=== PATIENT | male | born 1965 | race Caucasian/White ===

== ENCOUNTER 2016-12-30 01:48 | Emergency (ER) | payer OTHER ==
--- NOTE | 2016-12-30 02:16 | ERNOTE ---
ENT HPI Presenting Symptoms: eye pain Time Seen by Provider: 12/30/16 01:58 Source: patient Exam Limitations: no limitations - Immun/Allergies/Home Medications Immunizations: IMMUNIZATION HX Immunizations Up to Date Yes History of Influenza Vaccine No Hx Pneumococcal Vaccination No Allergies/Adverse Reactions: Allergies Allergy/AdvReac Type Severity Reaction Status Date / Time No Known Drug Allergies Allergy Verified 12/30/16 01:54 Home Medications: HOME MEDICATIONS NK [No Home Medication] 12/30/16 [Last Taken Unknown] - History of Present Illness Narrative: Pt was at work when oil was sprayed onto him getting into his eyes. His eyes were flushed immediately and then he was brought to the ED. His vision is 20/ 30 with both eyes. He report the left eye is still somewhat irritated but both are much better than initially. Severity: Present: moderate ENT Location: Present: eye (R), eye (L) Prearrival Treatment: Present: flushing eys Review of Systems - Review of Systems Constitutional: Absent: recent illness EYE: Present: see HPI, tearing ENT: Present: no symptoms reported Respiratory: Absent: shortness of breath Cardiology: Absent: chest pain Skin: Present: no symptoms reported Neurological: Present: no symptoms reported - Patient's Past Medical History Patient History - Medical: No pertinent hx Patient History - Cardiac/Respiratory: No pertinent hx Patient History - Cancer: No Hx of Cancer Patient History - Surgical Procedures: No surgical history Patient History - Other: None - Social History Living Situations: home Psych History: No pertinent hx Smoking Status: Never smoker Alcohol Use: rarely Drug Use: none - Immunizations Immunizations Up to Date: Yes Hx Pneumococcal Vaccination: No History of Influenza Vaccine: No Physical Exam - Physical Exam General Appearance: Present: wd/wn, alert, no apparent distress Head Exam: Present: normal inspection, no evidence of injury Eye Exam: PERRL: bilateral, EOMI: bilateral, Sclera injection: bilateral - mild right, moderate left Ears, Nose, Throat: Present: normal pharynx Neck: Present: normal inspection, nontender, supple Respiratory: Present: no respiratory distress, no accessory muscle use Neurological Exam: Present: alert, oriented, normal mood/affect, no motor/ sensory deficits Skin Exam: Present: normal color, warm/dry, other - Pt still has much oil on his clothes and skin ED Progress - Vital Signs Vital Signs: Vital Signs 12/30/16 01:50 Temperature 36.8 C Pulse Rate 101 H Respiratory 18 Rate Blood Pressure 139/91 O2 Sat by Pulse 97 Oximetry - Progress/Reassessment Chief Complaint: Eye Injury/Trauma Procedures Narrative: right eye pH 7.0 initially, left eye 7.5-8.0 initially. Left eye 7.0-7.3 after [place] lens Eye Location: both eyes Tetracaine Drops Administered: Yes Eye - Cornea: Bilateral: examined w/fluorescein - No uptake Eye Irrigated w/ Saline (mls): 500 - left eye Antibiotic Ointment/Drps Admin: both eyes Complications: Pt shawanda procedure well Departure Clinical Impression: Conjunctivitis, chemical Qualifiers: Laterality: bilateral Qualified Code(s): H10.213 - Acute toxic conjunctivitis, bilateral - Departure Disposition: Home Follow Up Needed Condition: Good Instructions: Chemical Conjunctivitis, [id number] Additional Instructions: See ophthalmology within 2 days for checkup.
[2016-12-30] MEDS ORDERED: GENTAMICIN SULFATE 3.5 APPL TUBE EACHEYE ONE (02:38)
[2016-12-30] MEDS ORDERED: GENTAMICIN SULFATE 3.5 APPL TUBE ONE (02:39)
[2016-12-30 02:55] VITALS: BP 122/80
== END 2016-12-30 02:50 | disposition home or self-care (01) ==
LOC: ER 01:48
DX: T65.891A Toxic effect of other specified substances, accidental (unintentional), initial encounter (principal); H10.213 Acute toxic conjunctivitis, bilateral; Y92.63 Factory as the place of occurrence of the external cause; Y99.0 Civilian activity done for income or pay